=== PATIENT | male | born 1980 | race African-American/Black ===

== ENCOUNTER 2016-11-08 22:27 | Emergency (ER) | payer SELFPAY ==
[~2016-11-08 22:27] MED LIST: COMPAZINE10 MG PO; MAG-AL PLUS SUS30 M1 PO; NORCO 5-325 TA1 EACH PO; PRILOSEC40 M1 PO; ZOFRAN ODT4 MG/UDTAB PO
[2016-11-08] MEDS ORDERED: AMOXICILLIN875 M1 PO (23:38)
[2016-11-08] MEDS ORDERED: TYLENOL WITH C1 EACH PO (23:38)
== END 2016-11-08 23:56 ==
LOC: EDMED 22:27
DX: J02.9 Acute pharyngitis, unspecified (principal)